=== PATIENT | male | born 2005 | race American Indian/Alaskan Native ===

== ENCOUNTER 2024-10-23 06:04 | Emergency (ER) | payer OTHER, SELFPAY ==
[2024-10-23 06:04] VITALS: BMI 31.9
[2024-10-23 06:19] VITALS: BP 135/90; PULSE 64; RESP 19; TEMP 36.6; O2SAT 98
--- NOTE | 2024-10-23 06:20 | XR_ITS ---
Examination: CT abdomen and pelvis without contrast. Coronal 3-D reconstructions. Sagittal 2-D reconstructions. Date and time of exam:October 23, 2024 0817 hours INDICATIONS: Onset left lower abdominal pain and vomiting today CTDI: vol (mGy): 8.65 DLP: (mGycm): 526 Technique: Axial images of the abdomen have been obtained, 3 mm slice thickness Intravenous contrast material has not been administered. Low dose protocols were performed. One or more of the following dose reduction techniques were used; automated exposure control, adjustment of the mA and/or KV according to patient size, use of iterative reconstruction technique. Findings: Diffuse fatty infiltration throughout the liver No gallstones No splenic or pancreatic mass Normal adrenal glands No renal or ureteral calculi, no hydronephrosis Minor fluid distended small bowel loops No bowel obstruction Small lymph nodes in the right lower mesentery Normal appendix No diverticulitis Urinary bladder intact Normal prostate IMPRESSION: Mild small bowel ileus versus enteritis, clinical correlation advised Normal appendix
--- NOTE | 2024-10-23 06:21 | PD.EDBACK ---
ED Back Injury Pain RME/HPI General Chief Complaint: Abdominal Pain Stated Complaint: Lower Left Abdominal Pain Time Seen by Provider: 10/23/24 06:25 Source: patient Arrival date/time: 10/23/24 06:04 19-year-old male with no known medical history presents today with a chief complaint of left lower abdominal pain and dysuria x 3 hours. Mode of arrival: ambulatory Limitations: no limitations Related Data Previous Rx's ?Medication ?Instructions ?Recorded nitrofurantoin 100 mg PO Q12H 5 days #10 caps 10/23/24 monohydrate/macrocrystals 100 mg capsule (Macrobid) Allergies Allergy/AdvReac Type Severity Reaction Status Date / Time No Known Allergies Allergy Verified 10/23/24 06:07 Review of Systems Review of Systems Systems Reviewed: All systems reviewed, normal except as documented Constitutional Constitutional: Reports system reviewed and no additional complaints, except as documented, Denies fatigue, Denies fever(s), Denies headache(s) and Denies weakness Eyes Eyes: Reports system reviewed and no additional complaints, except as documented, Denies blurry vision and Denies change in vision ENT Ears, Nose, Mouth, and Throat: Reports system reviewed and no additional complaints, except as documented, Denies otalgia, Denies headache(s), Denies nasal congestion, Denies throat swelling and Denies vertigo Cardiovascular Cardiovascular: Reports system reviewed and no additional complaints, except as documented, Denies chest pain, Denies dyspnea and Denies dyspnea on exertion Respiratory Respiratory: Reports system reviewed and no additional complaints, except as documented, Denies chest congestion, Denies cough, Denies dyspnea, Denies dyspnea on exertion and Denies wheezing Gastrointestinal Gastrointestinal: Reports system reviewed and no additional complaints, except as documented, Reports abdominal pain, Denies constipation, Reports cramping, Denies diarrhea, Reports nausea and Reports vomiting Genitourinary Genitourinary: Reports system reviewed and no additional complaints, except as documented, Denies dysuria and Denies hematuria Musculoskeletal Musculoskeletal: Reports system reviewed and no additional complaints, except as documented and Denies back pain Integumentary/Breasts Skin/Breast: Reports system reviewed and no additional complaints, except as documented and Denies wounds Neurologic Neurologic: Reports system reviewed and no additional complaints, except as documented, Denies confusion, Denies headache(s), Denies lack of coordination, Denies vertigo and Denies weakness Psychiatric Psychiatric: Reports system reviewed and no additional complaints, except as documented, Denies anxiety, Denies confusion, Denies depression, Denies paranoia, Denies suicidal ideation and Denies tactile hallucinations Endocrine Endocrine: Reports system reviewed and no additional complaints, except as documented and Denies fatigue Hematologic/Lymphatic Hematologic/Lymphatic: Reports system reviewed and no additional complaints, except as documented and Denies lymphadenopathy Allergic/Immunologic Allergic/Immunologic: Reports system reviewed and no additional complaints, except as documented, Denies throat swelling, Denies urticaria and Denies wheezing Past Medical History Social History SMOKING STATUS: Former smoker ED Exam General Limitations: Present no limitations General appearance: Present alert and in no apparent distress Head Head exam: Present atraumatic Eye Eye exam: Present normal appearance, PERRL and EOMI ENT ENT exam: Present normal exam, normal oropharynx and mucous membranes moist Neck Neck exam: Present normal inspection, full ROM and trachea midline Chest Chest inspection: Present normal inspection and symmetric chest wall rise Respiratory Respiratory exam: Present normal lung sounds bilaterally; Absent respiratory distress, wheezes, stridor, accessory muscle use or prolonged expiratory phase Cardiovascular Cardiovascular exam: Present regular rate, normal rhythm and normal heart sounds Abdominal Exam Abdominal exam: Present soft, tenderness and normal bowel sounds; Absent distention, guarding, rebound, rigidity, Jarvis's sign, tenderness at McBurney's Point, mass or hernia Abdominal tenderness: Present LLQ and moderate Extremities Exam Extremities exam: Present normal inspection and full ROM Back Exam Back exam: Present normal inspection and full ROM; Absent CVA tenderness (R) or CVA tenderness (L) Neurological Exam Neurological exam: Present alert, oriented X3 and CN II-XII intact Psychiatric Psychiatric exam: Present normal affect and normal mood Skin Skin exam: Present warm, dry, intact and normal color Course Quality Measures none Orders Category Date Time Status CT abdomen pelvis wo con Stat Exams 10/23/24 06:20 Completed CBC Stat Lab 10/23/24 06:45 Completed CMP [Comprehensive Metabolic Panel] Stat Lab 10/23/24 06:45 Completed Lipase Stat Lab 10/23/24 06:45 Completed UA [Urinalysis] Stat Lab 10/23/24 07:15 Completed Urine Culture Stat Lab 10/23/24 07:15 Received Ketorolac Inj [Toradol Inj] Med 10/23/24 06:20 Discontinued 30 mg IM X1 ONE Ondansetron Odt [Zofran Odt] Med 10/23/24 06:20 Discontinued 4 mg PO X1 ONE Vital Signs Vital signs: Vital Signs Temperature 98 F 10/23/24 06:19 Pulse Rate 64 10/23/24 06:19 Respiratory Rate 19 10/23/24 06:19 Blood Pressure 135/90 H 10/23/24 06:19 Pulse Oximetry (%) 98 10/23/24 06:19 Oxygen Delivery Method Room Air 10/23/24 06:19 Back Pain / Injury MDM Narrative MDM Narrative:: 19-year-old male with no known medical history presents today with a chief complaint of left lower abdominal pain and dysuria x 3 hours. Patient is hemodynamically stable and in no apparent distress Physical examination shows left lower abdominal pain and tenderness with palpation. There is active bowel sounds to all 4 quadrants. The patient is afebrile denies vomiting denies diarrhea and denies any right lower quadrant or right upper quadrant abdominal pain. Urinalysis was positive for urinary tract infection and CT of the abdomen and pelvis shows enteritis. Patient was discharged and educated to follow-up with primary care provider and return to the emergency room for any evidence of worsening signs or symptoms Patient data External records reviewed:: [facility] previous records Clinical information provided by:: patient Social determinants that could affect healthcare access:: none Patient has the following chronic illnesses:: No chronic illnesses How is presenting disease/condition affected by chronic disease/condition?: no chronic disease Evaluation data The following diagnostics were reviewed and interpreted by me:: lab results and radiology exam(s) Lab and/or radiology exams considered but not ordered:: Labs and radiology exams considered and ordered Interpretation Summary: CT abdomen and pelvis-Findings: Diffuse fatty infiltration throughout the liver No gallstones No splenic or pancreatic mass Normal adrenal glands No renal or ureteral calculi, no hydronephrosis Minor fluid distended small bowel loops No bowel obstruction Small lymph nodes in the right lower mesentery Normal appendix No diverticulitis Urinary bladder intact Normal prostate IMPRESSION: Mild small bowel ileus versus enteritis, clinical correlation advised Normal appendix Medications / Prescriptions Medications or Prescriptions considered but not ordered:: Medication given Medication administrations:: Medication Administration History Discontinued Medications Ketorolac Tromethamine (Ketorolac Inj 60 Mg/2 Ml Vial) 30 mg IM X1 ONE Stop: 10/23/24 06:21 Last Admin: 10/23/24 06:29 Dose: 30 mg Documented By: NORMAN Ondansetron HCl (Ondansetron Odt 4 Mg Tabrap) 4 mg PO X1 ONE; Protocol Stop: 10/23/24 06:21 Last Admin: 10/23/24 06:29 Dose: 4 mg Documented By: NORMAN Medication given Consultations Consultation(s) initiated? (list below): No Diagnosis Differential diagnosis back pain/injury: pyelonephritis and other (Gastroenteritis/diverticulitis/diverticulosis/abdominal pain/renal calculi/urinary tract infection) Most likely diagnosis given after review of the tests above:: Urinary tract infection/enteritis Admission Indicated Admission indicated?: not indicated Admission Request Was there a request for admission?: No Disposition Plan Disposition Plan: Discharge Discharge Attestation Discharge Attestation: The patient and all family members were given an opportunity to ask questions and understood the discharge instructions. Discharge instructions specifically effects, indications for sooner follow up or return to the emergency department, and the expected course of current diagnosis. Patient condition: Stable Discharge Plan Plan Patient Disposition: HOME (Self Care) Disposition Comment: Stable Prescriptions/Referrals Prescriptions/Med Rec: New nitrofurantoin monohyd/m-cryst [Macrobid] 100 mg capsule 100 mg PO Q12H 5 Days Qty: 10 0RF Rx Instructions: must administer with a meal/food Referrals: No Primary/Family,Physician [Primary Care Provider] - In 1 week Problem List Clinical Impression: Gastroenteritis, Urinary tract infection Patient/Caregiver Discharge Instructions Education Materials: ED Gastroenteritis, Noninfectious Additional Instructions: Please follow-up with your primary care provider in the next [address] of your abdomen and pelvis shows inflammation of your small intestine. This could be due to to food poisoning or drinking contaminated water. Your urinalysis also showed a urinary tract infection antibiotics are sent to your pharmacy please pick them up and take them as indicated Please follow-up with your primary care provider if your signs and symptoms continue. For any evidence of worsening signs or symptoms please return to the emergency room immediately Print Language: Upper Sorbian Stand Alone Forms: Claudia Award Info., Patient Portal Info Letter TOM/IVAN Supervising Physician TOM/IVAN Supervising Physician: Dr Abbasi
[2024-10-23] MEDS: KETOROLAC INJ 60 MG/2 ML VIAL 30 MG IM (06:29)
[2024-10-23] MEDS: ONDANSETRON ODT 4 MG TABRAP PO (06:29)
[2024-10-23 07:34] LABS: Collection Type, Urine Clean Catch; Squamous Epithelial Cell,Urine 0 /hpf (0-5)
[2024-10-23 07:38] LABS: Basophils # (Auto) 0.1 Thou/mm3 (0.0-0.2); Basophils % (Auto) 1 % (0-2.5); Eosinophils # (Auto) 0.2 Thou/mm3 (0.0-0.5); Eosinophils % (Auto) 3 % (0-10); Hematocrit 45.1 % (41.0-53.0); Hemoglobin 15.8 g/dL (13.5-16.0); Immature Granulocytes % (Auto) 1 % (0-0); Immature Granulocytes Auto 0.04 Thou/mm3 (0.00-0.00); Lymphocytes # (Auto) 2.1 Thou/mm3 (1.0-4.8); Lymphocytes % (Auto) 28 % (10-50); Mean Corpuscular Hemoglobin 28.9 pg (25.0-35.0); Mean Corpuscular Volume 82 fL (80-100); Monocytes # (Auto) 0.6 Thou/mm3 (0.0-0.8); Monocytes % (Auto) 8 % (0-12); Neutrophils # (Auto) 4.5 Thou/mm3 (1.8-7.7); Neutrophils % (Auto) 59 % (37-80); Nucleated Red Blood Cell % 0 /100 WBC (0); Platelet Count 175 Thou/mm3 (140-440); RDW Standard Deviation 37.6 fL (35.1-43.9); Red Blood Count 5.47 Miln/mm3 (4.50-5.90); White Blood Count 7.6 Thou/mm3 (3.8-10.6)
[2024-10-23 07:41] LABS: Bilirubin,Urine Negative (Negative); Blood,Urine 3+ (Negative); Clarity,Urine Clear (Clear/Hazy); Color,Urine Lt-Yellow (Lt Yel-Yel); Glucose, Urine Negative (Negative); Ketones,Urine Negative (Negative); Leukocyte Esterase,Urine Positive (Negative); Nitrite,Urine Negative (Negative); Protein,Urine Trace (Neg - Trace); RBC,Urine 198 /hpf (0-3); Specific Gravity,Urine 1.026 (1.001-1.035); Urobilinogen,Urine Negative mg/dL (0.0-1.0); WBC,Urine 13 /hpf (0-5)
[2024-10-23 08:02] LABS: Alanine Aminotransferase 52 U/L (10-49); Albumin, Serum 4.9 gm/dL (3.5-5.0); Anion Gap 9 (7-16); Aspartate Amino Transferase 23 U/L (0-34); BUN/Creatinine Ratio 18 Ratio (12-20); Bilirubin,Total 0.3 mg/dL (0.3-1.2); Blood Urea Nitrogen 18 mg/dL (9-23); Calcium 9.5 mg/dL (8.3-10.6); Calcium (Corrected) 9.5 mg/dL (8.5-10.1); Carbon Dioxide 28.5 mMol/L (20.0-31.0); Chloride 104 mMol/L (98-107); Estimated Creatinine Clearance 130.8 mL/min (>60); Glucose 108 mg/dL (74-106); Osmolality,Calculated 284 (275-295); Sodium 141 mMol/L (136-145); Total Protein 7.3 gm/dL (5.7-8.2); eGFR > 60 See Note
[2024-10-23 08:03] LABS: Alkaline Phosphatase 146 U/L (46-116); Globulin 2.4 gm/dL (2.3-3.5); Lipase 27 U/L (12-53)
== END 2024-10-23 10:36 | disposition home or self-care (01) ==
PROVIDERS: Nurse Practitioner Family; Emergency Provider Emergency Medicine
DX: K52.9 Noninfective gastroenteritis and colitis, unspecified (principal); N39.0 Urinary tract infection, site not specified; K76.0 Fatty (change of) liver, not elsewhere classified; Z87.891 Personal history of nicotine dependence
CPT/HCPCS: 36415; 74176; 80053; 81001; 83690; 85025; 87086; 96372; 99284; J1885; Q0162